=== PATIENT | male | born 1955 | race African-American/Black ===

== ENCOUNTER 2016-11-15 02:09 | Emergency (ER) | payer BC, OTHER ==
[~2016-11-15] VITALS: Ht 182.9 cm; Wt 95.7 kg
[~2016-11-15 02:09] MED LIST: ALBU18002 INH; ASMACORT INH; ATOR-22 PO; CHOL1000 PO; IBUP-103 PO; LISI-725 PO; OXYC-57 PO; TADA5TAB11 PO; TYL325X PO; VITACAP37 PO
[2016-11-15 02:12] VITALS: TEMP 36.9; Ht 182.9 cm; Wt 95.7 kg
[2016-11-15] MEDS ORDERED: ALBUT/IPRATROP 3MG/0.5MG NEB 3 ML VIAL INH STA (02:39)
[2016-11-15] MEDS ORDERED: ASPI325T45 PO (02:49)
--- NOTE | 2016-11-15 03:16 | EMERGENCY ROOM VISIT NOTE ---
History Report prepared by Ayla: Kristina Estrada Under the Supervision of: Dr. Melissa Em D.O. First contact with patient: 02:16 Chief Complaint: RESPIRATORY PROBLEMS Stated Complaint: TROUBLE BREATHING - ASTHMA/COLD Nursing Triage Summary: Patient reports cold symptoms past few days and tonight developed difficulty breathing. 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 The patient states that his grandchildren were sick with cold symptoms and he has started having congestion and a productive green cough. The patient states that tonight he was having more trouble breathing and used his inhaler 12-15 time with no relief which caused him to decide to come to the ED. The patient states that he has history of asthma as well as bronchitis but does not believe he has ever had pneumonia. The patient denies any leg cramping or swelling. 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 Review of Systems See HPI for pertinent positives & negatives. A total of 10 systems reviewed and were otherwise negative. Past Medical & Surgical Medical Problems: (1) Asthma (2) Bronchitis Family History No pertient family history secondary to age Social History Smoking Status: Never Smoker Drug Use: none Marital Status: Occupation Status: employed Current/Historical Medications Scheduled Acetaminophen (Tylenol), 1-2 TABS PO Q4H Aspirin (Aspirin), 81 MG PO DAILY Atorvastatin (Lipitor), 20 MG PO HS Azithromycin (Zithromax Z-Hilario), 0 PO UD Cholecalciferol (Vitamin D3), 1,000 UNITS PO QAM Lisinopril (Zestril), 20 MG PO HS Prednisone (Prednisone), 50 MG PO DAILY Tadalafil (Cialis), 5 MG PO UD Vitamin E (E-400), 400 UNITS PO QAM [Asmacort], 1 PUFF INH BID Scheduled PRN Albuterol Sulfate (Proair Respiclick), 2 PUFFS INH QID PRN for SOB/Wheezing Allergies Coded Allergies: Peanut (Unverified Allergy, Severe, HIVES AND THROAT SWELLING, 10/21/16) Shellfish (Unverified Allergy, Severe, HIVES AND THROAT SWELLING, 10/21/16) Hydrocodone (Verified Adverse Reaction, Unknown, NAUSEA, 10/21/16) Uncoded Allergies: SEASONAL (Allergy, Mild, 07/09/08) Physical Exam Vital Signs Date Time Temp Pulse Resp B/P Pulse Ox O2 Delivery O2 Flow Rate FiO2 11/15/16 03:29 88 18 149/72 96 Room Air 11/15/16 02:12 36.9 97 20 161/93 95 Room Air Physical Exam HEENT: Head - normocephalic and atraumatic Pupils are equal, round, and reactive to light. Extraocular eye muscles are intact, and sclera are anicteric. Nose - moist nasal mucosa without discharge. Mouth - moist buccal mucosa. Oropharynx is nonerythematous and there is no tonsillar exudate or edema noted. Neck: Supple; no JVD, nuchal rigidity, cervical lymphadenopathy. Heart: Regular rate and rhythm. There is a normal S1 and S2 with no murmurs, clicks, or gallops appreciated. Lungs: Expiratory wheezing at both lung bases. No rales or rhonchi. Abdomen: Soft, completely nontender, nondistended, with good bowel sounds. There are no palpable pulsatile masses or hepatosplenomegaly. There is no guarding, rigidity, or rebound noted. Extremities: No evidence of cyanosis, clubbing, or edema. There are easily palpable peripheral pulses. Skin: warm and dry with good turgor and no rashes. Medical Decision & Procedures ER Provider Diagnostic Interpretation: X-ray results as stated below per interpretation by me: CHEST X-RAY: No obvious pneumonia or pulmonary infiltrate. Laboratory Results Test 11/15/16 02:50 Influenza Type A Antigen Neg for Influ A (NEG) Influenza Type B Antigen Neg for Influ B (NEG) Laboratory results per my review. Medications Administered Medications (Trade) Dose Ordered Sig/Jose Carlos Route Start Time Stop Time Status Last Admin Dose Admin Albuterol/ Ipratropium (Duoneb) 3 ml NOW STAT INH 11/15/16 02:39 11/15/16 02:40 DC 11/15/16 02:56 3 ML Prednisone (PredniSONE TAB) 60 mg NOW STAT PO 11/15/16 02:39 11/15/16 02:40 DC 11/15/16 02:56 60 MG Procedure Medications Administered: Prednisone Albuterol/Ipratropium ED Course 0236: Past medical records reviewed. The patient was evaluated in room B12B. A complete history and physical exam was performed. The patient had a chest x- ray as described above. 0239: Ordered Prednisone 60 mg PO, Duoneb 3 ml INH. 0347: Upon reevaluation, the patient is feeling much better. I discussed findings and results with him. He verbalized agreement of the treatment plan. The patient was discharged home. Medical Decision The patient is a 61 year old male who presents to the ED with respiratory difficulty. Differential diagnosis includes asthma exacerbation, pneumonia, influenza. Labs: Influenza negative. This is a 61-year-old male patient with history of asthma who presents to the emergency department with increasing shortness of breath. Patient also describes a cough productive of green sputum. Influenza testing was negative. Chest x-ray shows no evidence of a pneumonia. The patient was she with oral prednisone. We'll also start the patient on Zithromax for this presumed bronchitis in light of his asthma history. The patient take prednisone Zithromax and follow-up with his PCP V of the week. If symptoms worsen, he should return to the ER. Impression Primary Impression: Asthma exacerbation Additional Impression: Bronchitis Scribe Attestation The scribe's documentation has been prepared under my direction and personally reviewed by me in its entirety. I confirm that the note above accurately reflects all work, treatment, procedures, and medical decision making performed by me. Departure Information Dispostion Home / Self-Care Prescriptions Prednisone (PREDNISONE) 50 Mg Tab 50 MG PO DAILY for 4 Days, TAB Prov: Melissa Em D.O. 11/15/16 Azithromycin (ZITHROMAX Z-HILARIO) 250 Mg Tab 0 PO UD, #1 TAB 2 TABS DAY 1, THEN 1 TAB DAILY FOR 4 DAYS. Prov: Melisas Em D.O. 11/15/16 Referrals No Doctor, Assigned (PCP) Forms HOME CARE DOCUMENTATION FORM, IMPORTANT VISIT INFORMATION, WORK / SCHOOL INSTRUCTIONS Patient Instructions A Signature Page, [email or web address] Additional Instructions Rest. Take prednisone daily for next 4 days Zithromax as directed. Use inhalers at home. Follow up with PCP by Tuesday for a recheck.
[2016-11-15 03:29] VITALS: BP 149/72; PULSE 88; O2SAT 96
[2016-11-15] MEDS ORDERED: AZITTAB PO (03:50)
[2016-11-15] MEDS ORDERED: PRED50TA PO (03:50)
--- NOTE | 2016-11-15 07:08 | DIAGNOSTIC IMAGING REPORT ---
CHEST 2 VIEWS ROUTINE CLINICAL HISTORY: Shortness of breath and cough. COMPARISON STUDY: Chest radiograph October 26, 2008. FINDINGS: Lung volumes are normal. There is no consolidation. No pneumothorax or pleural effusion is identified. Cardiac size is normal. Mediastinal contours are normal. There is no evidence of pulmonary edema. IMPRESSION: No acute cardiopulmonary findings. Electronically signed by: Fernando Brunner M.D. 11/15/2016 7:06 AM
== END 2016-11-15 04:00 | disposition home or self-care (01) ==
LOC: C.EDB 02:10
DX: J45.901 Unspecified asthma with (acute) exacerbation (principal); Z79.52 Long term (current) use of systemic steroids; Z79.82 Long term (current) use of aspirin